=== PATIENT | male | born 1955 | race Caucasian/White ===

== ENCOUNTER 2019-01-19 13:20 | Emergency (ER) | payer MEDICAID ==
[~2019-01-19] VITALS: Wt 79.0 kg
[2019-01-19 13:23] VITALS: BP 150/85; PULSE 90; RESP 18
[2019-01-19] MEDS ORDERED: ACET500C5 PO (14:45)
--- NOTE | 2019-01-19 14:48 | ERD ---
ER Documentation Chief Complaint Chief Complaint possible cyst? next umbilicus x 3 years HPI 63-year-old male presents with a lump near his bellybutton for the last 3 years. They have started after surgery for his gallbladder. Denies any fevers, vomiting, blood, urinary complaints, additional symptoms. ROS All systems reviewed and are negative except as per history of present illness. Medications Home Meds Active Scripts Acetaminophen* (Tylophen*) 500 Mg Capsule, 1 CAP PO Q6H PRN for PAIN AND OR ELEVATED TEMP, #20 CAP Prov:ANTONIA MARTINEZ MD 01/19/19 Allergies Allergies: Coded Allergies: No Known Allergies (Verified Allergy, Mild, 11/22/09) PMhx/Soc History of Surgery: No Hx Neurological Disorder: No Hx Respiratory Disorders: No Hx Cardiac Disorders: No Hx Miscellaneous Medical Probl: No Hx Alcohol Use: Yes (A BEER A MONTH) Hx Substance Use: No Hx Tobacco Use: No FmHx Family History: No diabetes, No coronary disease, No other Physical Exam Vitals Vital Signs Date Temp Pulse Resp B/P (MAP) Pulse Ox O2 O2 Flow FiO2 Time Delivery Rate 01/19/19 98.5 90 18 150/85 99 13:23 (106) Physical Exam Const: No acute distress Head: Atraumatic Eyes: Normal Conjunctiva ENT: Normal External Ears, Nose and Mouth. Neck: Full range of motion. No meningismus. Resp: Clear to auscultation bilaterally Cardio: Regular rate and rhythm, no murmurs Abd: Soft, non tender, non distended. Normal bowel sounds. Palpable mass to the right of the umbilicus. It is in the area of previous incision. There is no erythema, warmth. There is approximately 1.5 cm and unable to reduce. Skin: No petechiae or rashes Back: No midline or flank tenderness Ext: No cyanosis, or edema Neur: Awake and alert Psych: Normal Mood and Affect Procedures/MDM Patient presents with signs and symptoms of umbilical or incisional hernia wi thout signs of strangulation. No signs of abdominal infection patient is well- appearing. There is no signs of obstruction. Patient has had these symptoms for the last 3 years. He is currently appropriate for outpatient treatment given his duration of symptoms. He is advised he will need general surgery evaluation for repair of his hernia. He should return for fevers, vomiting, redness, new worsening symptoms otherwise with primary care doctor for possible referral to general surgery. Was given referrals to general surgeons nonetheless despite likely need for authorization. Currently has no signs or symptoms of acute abdomen, appendicitis, additional concerning signs or symptoms. Departure Diagnosis: Primary Impression: Hernia of abdominal wall Condition: Stable Patient Instructions: Hernia (Inguinal, Ventral, Umbilical) Referrals: Andrew GLOVER KAMBIZ M.D. LOMIS, THOMAS MD Additional Instructions: Va al asif doctor/ specialista para mas evaluacon en el proximo semana. po siblemente necesita autorizado de asif doctor primario para specialista. Regresa para fiebre, o mas o nueva simptomas- fiebre, vomito. ANTONIA MARTINEZ MD Jan 19, 2019 14:48
== END 2019-01-19 17:21 | disposition home or self-care (01) ==
LOC: FTE 13:20
DX: K43.9 Ventral hernia without obstruction or gangrene (principal)
CPT/HCPCS: 99282